=== PATIENT | female | born 1960 | race Caucasian/White ===

== ENCOUNTER 2017-12-13 14:06 | Emergency (ER) | payer MEDICAID ==
[~2017-12-13] VITALS: Ht 152.4 cm; Wt 49.1 kg
[2017-12-13 14:12] VITALS: Ht 152.4 cm; Wt 49.1 kg
[2017-12-13] MEDS ORDERED: K-TAB10 MEQ PO (14:15)
[2017-12-13] MEDS ORDERED: HCTZ25 MG PO (14:15)
[2017-12-13] MEDS ORDERED: TOPROL XL25 MG PO (14:15)
[2017-12-13] MEDS ORDERED: CLONAZEPAM2 MG/TAB PO (14:16)
[2017-12-13] MEDS ORDERED: PLAVIX75 MG PO (14:16)
[2017-12-13] MEDS ORDERED: NEURONTIN 300300 MG PO (14:16)
[2017-12-13] MEDS ORDERED: HYDROCODONE-APA1 TAB PO (14:17)
[2017-12-13] MEDS ORDERED: HYSINGLA ER20 MG PO (14:17)
[2017-12-13] MEDS ORDERED: STARLIX120 MG PO (14:18)
[2017-12-13 14:35] LABS: BASOPHILS 0.5 % (0-2); EOSINOPHILS 0.5 % (0-7); HEMATOCRIT 42.3 % (36.0-48.0); HEMOGLOBIN 14.9 g/dL (12-16); IMMATURE GRANULOCYTES 0.1 % (0-5); LYMPHOCYTES 29.4 % (15-50); MCH 31.2 pg (26.0-34.0); MCHC 35.2 g/dL (31.0-37.0); MCV 88.7 fL (80.0-100.0); MEAN PLATELET VOLUME 9.3 fL (7.4-10.4); MONOCYTES 6.3 % (2-11); NEUTROPHILS 63.2 % (40-80); PLATELET COUNT 229 10x3/uL (130-400); RBC 4.77 10x6/uL (4.00-5.40); RDW 12.8 % (11.5-14.5)
[2017-12-13 14:56] LABS: ALBUMIN 4.3 g/dL (3.4-5.0); ANION GAP 15.9 mmol/L (8-16); BILIRUBIN - TOTAL 0.66 mg/dL (0.2-1.3); CALCIUM 9.7 mg/dL (8.5-10.1); CARBON DIOXIDE 24.6 mmol/L (21.0-32.0); POTASSIUM - SERUM 3.5 mmol/L (3.5-5.1); PROTEIN - SERUM 8.9 g/dL (6.4-8.2)
[2017-12-13 21:35] LABS: APPEARANCE CLEAR (CLEAR); BILIRUBIN NEGATIVE (NEGATIVE); COLOR YELLOW (YELLOW); GLUCOSE NEGATIVE (NEGATIVE); KETONE SMALL mg/dL (NEGATIVE); NITRITE NEGATIVE (NEGATIVE); PROTEIN NEGATIVE (NEGATIVE); UROBILINOGEN NORMAL (NORMAL)
[2017-12-13] MEDS ORDERED: LIBRAX CAPSULE1 CAP PO (21:45)
[2017-12-13] MEDS ORDERED: ZOFRAN8 MG PO (21:45)
[2017-12-13 22:39] VITALS: BP 150/82
== END 2017-12-13 21:59 | disposition home or self-care (01) ==
LOC: D.ER 14:06
PROVIDERS: Family Medicine
DX: R10.32 Left lower quadrant pain (principal); R10.31 Right lower quadrant pain; R11.2 Nausea with vomiting, unspecified; R19.7 Diarrhea, unspecified; E11.9 Type 2 diabetes mellitus without complications; K21.9 Gastro-esophageal reflux disease without esophagitis; F17.200 Nicotine dependence, unspecified, uncomplicated

== ENCOUNTER 2020-11-21 20:16 | Inpatient (IN) | payer MEDICAID ==
[~2020-11-21] VITALS: Ht 152.4 cm; Wt 54.5 kg
[~2020-11-21 20:16] MED LIST: CLONAZEPAM2 MG/TAB PO; HCTZ25 MG PO; HYDROCODONE-APA1 TAB PO; HYSINGLA ER20 MG PO; K-TAB10 MEQ PO; LIBRAX CAPSULE1 CAP PO; NEURONTIN 300300 MG PO; PLAVIX75 MG PO; STARLIX120 MG PO; TOPROL XL25 MG PO; ZOFRAN8 MG PO
[2020-11-21 21:47] LABS: BASOPHILS 0.3 % (0-2); EOSINOPHILS 0.4 % (0-7); HEMATOCRIT 35.5 % (36.0-48.0); HEMOGLOBIN 12.3 g/dL (12-16); IMMATURE GRANULOCYTES 0.4 % (0-5); LYMPHOCYTES 15.3 % (15-50); MCH 30.8 pg (26.0-34.0); MCHC 34.6 g/dL (31.0-37.0); MEAN PLATELET VOLUME 8.9 fL (7.4-10.4); MONOCYTES 4.9 % (2-11); NEUTROPHIL ABS# 8.22 10x3/uL (1.56-6.13); NEUTROPHILS 78.7 % (40-80); PLATELET COUNT 290 10x3/uL (130-400); RBC 3.99 10x6/uL (4.00-5.40); RDW 13.3 % (11.5-14.5); WBC 10.4 10x3/uL (4.8-10.8)
[2020-11-21 21:54] LABS: CALC OSMOLALITY 262 mosm/kg (275-300); CALCIUM 9.2 mg/dL (8.5-10.1); CHLORIDE - SERUM 93 mmol/L (98-107); CREATININE - SERUM 0.5 mg/dL (0.6-1.3); GLUCOSE 211 mg/dL (74-106); SODIUM 129 mmol/L (136-145); UREA NITROGEN 8 mg/dL (7-18); eGFR NON AFRICAN AMERICAN > 90 mL/min (90-120)
[2020-11-21 22:00] LABS: ALBUMIN 3.8 g/dL (3.4-5.0); ALKALINE PHOSPHATASE 64 U/L (30-120); ALT (SGPT) 24 U/L (10-68); BILIRUBIN - TOTAL 0.36 mg/dL (0.2-1.3); PROTEIN - SERUM 7.9 g/dL (6.4-8.2)
[2020-11-21 22:43] VITALS: BP 164/88
[2020-11-21] MEDS ORDERED: LANTUS SOL100 UNIT/2 SC (23:55)
[2020-11-21] MEDS ORDERED: ZANAFLEX4 MG PO (23:58)
[2020-11-21] MEDS ORDERED: BUTALB-APAP-CA1 EACH PO (23:59)
[2020-11-22] MEDS ORDERED: GLUCOPHAGE850 MG PO
--- NOTE | 2020-11-22 | NUR ---
RECEIVED PT TO FLOOR FROM ER VIA WHEELCHAIR. RIGHT SHOULDER SWOLLEN IN SLING. PT RATES PAIN 9/10. REVIEWED HOME MEDS AND HISTORY. CALLED SALLY RAMIREZ FOR NICOTINE PATCH AND RESTARTED PT'S CLONAZEPAM. ASSISTED PT UP TO BSC TO VOID. PLACED SCD'S ON PT AND INSTRUCTED ON INCENTIVE SPIROMETER. NO OTHER NEEDS. WILL CONTINUE TO MONITOR.
[2020-11-22] MEDS ORDERED: GLIPIZIDE5 MG PO (00:01)
[2020-11-22] MEDS ORDERED: FUROSEMIDE20 MG PO (00:03)
[2020-11-22] MEDS ORDERED: PLAVIX75 MG PO (00:04)
[2020-11-22] MEDS ORDERED: LISINOPRIL10 MG PO (00:08)
[2020-11-22] MEDS ORDERED: PERCOCET 10-321 EAC1 PO ×2 (00:11→00:12)
[2020-11-22] MEDS ORDERED: TOPAMAX50 MG PO (00:15)
[2020-11-22] MEDS ORDERED: ALBUTEROL SULF8.5 GM INH (00:15)
[2020-11-22 01:27] VITALS: BP 142/47
[2020-11-22 03:54] LABS: BILIRUBIN NEGATIVE (NEGATIVE); KETONE NEGATIVE (NEGATIVE); NITRITE NEGATIVE (NEGATIVE); UROBILINOGEN NORMAL mg/dL (< 2)
[2020-11-22 04:07] VITALS: BMI 23.4
[2020-11-22 05:54] VITALS: BP 155/68
[2020-11-22] MEDS ORDERED: PIOGLITAZONE15 MG PO (06:15)
[2020-11-22 06:17] LABS: BASOPHILS 0.4 % (0-2); EOSINOPHILS 1.6 % (0-7); HEMATOCRIT 35.4 % (36.0-48.0); IMMATURE GRANULOCYTES 0.1 % (0-5); LYMPHOCYTE ABS# 2.26 10x3/uL (1.18-3.74); LYMPHOCYTES 32.2 % (15-50); MCH 30.4 pg (26.0-34.0); MCHC 33.9 g/dL (31.0-37.0); MCV 89.6 fL (80.0-100.0); MEAN PLATELET VOLUME 8.8 fL (7.4-10.4); MONOCYTES 9.4 % (2-11); NEUTROPHIL ABS# 3.94 10x3/uL (1.56-6.13); NEUTROPHILS 56.3 % (40-80); PLATELET COUNT 273 10x3/uL (130-400); RBC 3.95 10x6/uL (4.00-5.40); RDW 13.3 % (11.5-14.5)
[2020-11-22 06:37] LABS: ALBUMIN 3.6 g/dL (3.4-5.0); ALKALINE PHOSPHATASE 65 U/L (30-120); ALT (SGPT) 21 U/L (10-68); BILIRUBIN - TOTAL 0.28 mg/dL (0.2-1.3); CALC OSMOLALITY 274 mosm/kg (275-300); CALCIUM 9.2 mg/dL (8.5-10.1); CARBON DIOXIDE 24.3 mmol/L (21.0-32.0); CHLORIDE - SERUM 99 mmol/L (98-107); CREATININE - SERUM 0.6 mg/dL (0.6-1.3); GLUCOSE 233 mg/dL (74-106); MAGNESIUM - SERUM 1.8 mg/dL (1.8-2.4); PHOSPHOROUS 4.2 mg/dL (2.5-4.9); PROTEIN - SERUM 7.1 g/dL (6.4-8.2); SODIUM 135 mmol/L (136-145); UREA NITROGEN 6 mg/dL (7-18); eGFR NON AFRICAN AMERICAN > 90 mL/min (90-120)
[2020-11-22 06:42] LABS: POTASSIUM - SERUM 3.9 mmol/L (3.5-5.1)
[2020-11-22 06:45] LABS: INR 1.02 (0.85-1.17); PROTIME 12.4 SECONDS (11.6-15.0)
[2020-11-22 06:46] LABS: APTT 43.9 SECONDS (22.8-39.4)
--- NOTE | 2020-11-22 08:00 | NUR ---
PATIENT IN BED WITH IV INTACT. NO COMPLAINTS OR SIGNS OF DISTRESS. CALL LIGHT WITHIN REACH.
[2020-11-22 09:42] VITALS: BP 171/60
--- NOTE | 2020-11-22 11:50 | NUR ---
I have reviewed this patient and I concur with the Shift Assessment completed by the Licensed Practical Nurse today this shift.
[2020-11-22 13:48] VITALS: Ht 152.4 cm; Wt 54.5 kg
[2020-11-22 14:35] VITALS: BP 172/71
[2020-11-22 18:35] VITALS: BP 169/69
--- NOTE | 2020-11-22 18:35 | NUR ---
FIRST UNIT OF BLOOD COMPLETE. IV INTACT. VS STABLE. ASSISTED PATIENT TO BR TO WASH UP AND USE THE RESTROOM. STATED SHE WOULD CALL WHEN SHE IS READY TO GET THE SECOND UNIT STARTED AFTER. CALL LIGHT WITHIN REACH.
--- NOTE | 2020-11-22 18:45 | NUR ---
PATIENT IN BED WITH IV INTACT. NO COMPLAINTS OR SIGNS OF DISTRESS. HAD EXTRA LARGE BM AFTER TAKING LACTULOSE. DID NOT WANT THE SUPPOSITORY OR LINNIZESS. CALL LIGHT WITHIN REACH.
[2020-11-22 20:00] VITALS: BP 177/84
[2020-11-23] VITALS: BP 177/72
[2020-11-23 04:00] VITALS: BP 160/61
[2020-11-23 06:03] LABS: BASOPHILS 0.3 % (0-2); EOSINOPHILS 1.2 % (0-7); HEMATOCRIT 33.9 % (36.0-48.0); HEMOGLOBIN 11.7 g/dL (12-16); IMMATURE GRANULOCYTES 0.2 % (0-5); LYMPHOCYTE ABS# 2.38 10x3/uL (1.18-3.74); LYMPHOCYTES 41.5 % (15-50); MCH 31.1 pg (26.0-34.0); MCHC 34.5 g/dL (31.0-37.0); MCV 90.2 fL (80.0-100.0); MEAN PLATELET VOLUME 8.7 fL (7.4-10.4); MONOCYTES 8.2 % (2-11); NEUTROPHIL ABS# 2.78 10x3/uL (1.56-6.13); NEUTROPHILS 48.6 % (40-80); PLATELET COUNT 246 10x3/uL (130-400); RBC 3.76 10x6/uL (4.00-5.40); RDW 13.5 % (11.5-14.5); WBC 5.7 10x3/uL (4.8-10.8)
[2020-11-23 06:21] LABS: ALBUMIN 3.2 g/dL (3.4-5.0); ALKALINE PHOSPHATASE 59 U/L (30-120); ALT (SGPT) 19 U/L (10-68); CALC OSMOLALITY 268 mosm/kg (275-300); CALCIUM 8.6 mg/dL (8.5-10.1); CARBON DIOXIDE 23.5 mmol/L (21.0-32.0); CHLORIDE - SERUM 101 mmol/L (98-107); CREATININE - SERUM 0.6 mg/dL (0.6-1.3); GLUCOSE 215 mg/dL (74-106); MAGNESIUM - SERUM 1.6 mg/dL (1.8-2.4); PHOSPHOROUS 3.9 mg/dL (2.5-4.9); POTASSIUM - SERUM 3.5 mmol/L (3.5-5.1); PROTEIN - SERUM 7.1 g/dL (6.4-8.2); SODIUM 133 mmol/L (136-145); eGFR NON AFRICAN AMERICAN > 90 mL/min (90-120)
[2020-11-23 06:22] LABS: UREA NITROGEN 4 mg/dL (7-18)
--- NOTE | 2020-11-23 07:54 | NUR ---
AWAKE AND ALERT. ORIENTED X3. NO C/O AT THIS TIME. LUNGS ARE CLEAR BILATERALLY, NO COUGH NOTED. SKIN IS INTACT WITHOUT REDNESS. IV TO LEFT AC AREA IS PATENT WITHOUT REDNESSS AT INSERTION SITE. DENIES NEEDS.
[2020-11-23 08:00] VITALS: BP 127/74
--- NOTE | 2020-11-23 10:04 | NUR ---
REQUESTED AND GIVEN 4MG MORPHINE WITH 4MG ZOFRAN SLOW IVP FOR C/O RIGHT ARM PAIN LEVEL 8. WILL MONITOR.
--- NOTE | 2020-11-23 12:00 | NUR ---
IV TO LEFT AC REDDENED AND SWOLLEN. D/C WITH CATHETER INTACT. WILL RESITE.
--- NOTE | 2020-11-23 15:29 | NUR ---
REQUESTED AND GIVNE ONE PERCOCET PO FOR C/O RIGHT ARM PAIN LEVEL 10.. WILL MONITOR.
[2020-11-23 19:00] VITALS: BP 134/72
--- NOTE | 2020-11-23 19:39 | NUR ---
REQUESTED AND GIVEN 4MG ZOFRAN PO FOR C/O NAUSEA AFTER MEAL. WILL MONITOR. DENIES NEEDS. NO CHANGES NOTED.
[2020-11-24 04:00] VITALS: BP 154/62
--- NOTE | 2020-11-24 05:12 | NUR ---
I have reviewed this patient and I concur with the Shift Assessment completed by the Licensed Practical Nurse today this shift.
[2020-11-24 06:16] LABS: BASOPHILS 0.4 % (0-2); EOSINOPHILS 2.1 % (0-7); HEMOGLOBIN 11.9 g/dL (12-16); LYMPHOCYTES 27.6 % (15-50); MCH 30.7 pg (26.0-34.0); MCV 90.1 fL (80.0-100.0); MEAN PLATELET VOLUME 6.7 fL (7.4-10.4); NEUTROPHILS 62.9 % (40-80); RBC 3.89 10x6/uL (4.00-5.40); RDW 13.5 % (11.5-14.5)
[2020-11-24 06:23] LABS: PLATELET COUNT 317 10x3/uL (130-400); WBC 7.8 10x3/uL (4.8-10.8)
[2020-11-24 06:46] LABS: ALBUMIN 3.7 g/dL (3.4-5.0); ALKALINE PHOSPHATASE 62 U/L (30-120); ALT (SGPT) 22 U/L (10-68); BILIRUBIN - TOTAL 0.42 mg/dL (0.2-1.3); CALC OSMOLALITY 277 mosm/kg (275-300); CALCIUM 9.5 mg/dL (8.5-10.1); CARBON DIOXIDE 24.3 mmol/L (21.0-32.0); CHLORIDE - SERUM 101 mmol/L (98-107); CREATININE - SERUM 0.6 mg/dL (0.6-1.3); GLUCOSE 236 mg/dL (74-106); MAGNESIUM - SERUM 1.9 mg/dL (1.8-2.4); PHOSPHOROUS 4.2 mg/dL (2.5-4.9); POTASSIUM - SERUM 3.6 mmol/L (3.5-5.1); PROTEIN - SERUM 7.6 g/dL (6.4-8.2); SODIUM 136 mmol/L (136-145); UREA NITROGEN 6 mg/dL (7-18); eGFR NON AFRICAN AMERICAN > 90 mL/min (90-120)
[2020-11-24 10:12] VITALS: BP 176/91
[2020-11-24 12:29] VITALS: BP 158/79
--- NOTE | 2020-11-24 16:07 | NUR ---
OT NOTE: PT WAS SITTING ON EOB WITH CLOTHES ON.. SON AT BEDSIDE. REPORTED THAT SHE WAS BEING SENT HOME.. REPORTS THAT SHE WILL HAVE HER SON WITH HER SOME, BUT WOULD LIKE TO HAVE A CANE PRIOR TO GETTING HOME. PROVIDED PT WITH INFORMATION FOR PURCHASING PRIOR TO GETTING HOME. PT QUESTIONING IF SLING IS ON CORRECTLY.. CHECKED FOR ACCURACY AND IT WAS POSITIONED CORRECTLY. DISCUSSED POSSIBLE OBSTICLES WHEN RETURNING HOME.. QUESTIONS ANSWERED TO THE BEST OF MY ABILITY. BORIS MIRAMONTES, OTR/L [phone]
== END 2020-11-24 15:22 | disposition home or self-care (01) | DRG 563 ==
LOC: D.ER 20:16 → D.MS 22:22
PROVIDERS: Emergency Medicine; ADMIT Emergency Medicine; ATTEND Emergency Medicine
DX: S42.291A Other displaced fracture of upper end of right humerus, initial encounter for closed fracture (principal); E87.1 Hypo-osmolality and hyponatremia; W19.XXXA Unspecified fall, initial encounter; E11.65 Type 2 diabetes mellitus with hyperglycemia; K59.00 Constipation, unspecified; F17.200 Nicotine dependence, unspecified, uncomplicated; G89.29 Other chronic pain; M19.90 Unspecified osteoarthritis, unspecified site; I73.9 Peripheral vascular disease, unspecified